=== PATIENT | male | born 1970 | race Caucasian/White ===

== ENCOUNTER 2017-11-02 15:48 | Emergency (ER) | payer SELFPAY ==
[~2017-11-02] VITALS: Ht 172.7 cm; Wt 90.9 kg
[2017-11-02 15:54] VITALS: Ht 172.7 cm; Wt 90.9 kg
[2017-11-02] MEDS ORDERED: DOXEPIN HCL10 MG PO (15:56)
[2017-11-02] MEDS ORDERED: ZYPREXA ZYD10 MG/TAB PO (15:56)
[2017-11-02] MEDS ORDERED: VIVANCE (15:56)
[2017-11-02] MEDS ORDERED: PERCOCET 10/3251 TA1 PO (17:40)
[2017-11-02 18:00] VITALS: BP 118/73
== END 2017-11-02 18:00 | disposition home or self-care (01) ==
LOC: D.ER 15:48
DX: S52.501A Unspecified fracture of the lower end of right radius, initial encounter for closed fracture (principal); S52.611A Displaced fracture of right ulna styloid process, initial encounter for closed fracture; W18.30XA Fall on same level, unspecified, initial encounter; Y93.89 Activity, other specified; Y92.019 Unspecified place in single-family (private) house as the place of occurrence of the external cause; K21.9 Gastro-esophageal reflux disease without esophagitis; F17.200 Nicotine dependence, unspecified, uncomplicated